=== PATIENT | female | born 1985 | race Caucasian/White ===

== ENCOUNTER 2017-12-15 06:13 | Emergency (ER) | payer OTHER ==
[~2017-12-15] VITALS: Ht 167.6 cm; Wt 90.7 kg
[~2017-12-15 06:13] MED LIST: ACETAMINOPHEN-1 EAC1 PO; AMOXICILLIN500 M1 PO; APAP/CODEINE ELI5 M1 OR; AUGMENTIN 875875 MG PO; AZITHROMYCIN 2250 MG PO; CIPRO500 MG PO; DIFLUCAN200 MG PO; FLAGYL500 MG PO; FLEXERIL PO; LEVAQUIN 750 M750 MG PO; PREDNISONE50 MG PO; PROAIR HFA8.5 GM INH; SUPRAX400 M1 PO; TRAZODONE HCL50 MG PO; ULTRAM 50MG TAB50 MG PO; VENLAFAXIN75 MG/1 T2 PO; WELLBUTRIN SR150 MG PO
[2017-12-15 07:11] LABS: INFLUENZA A ANTIGEN None Detected (None Detect); INFLUENZA B ANTIGEN None Detected (None Detect)
[2017-12-15] MEDS ORDERED: AMOXICILLIN 50500 MG PO (07:25)
[2017-12-15 07:40] VITALS: BP 108/73
== END 2017-12-15 07:43 | disposition home or self-care (01) ==
LOC: M.ERS 06:13
PROVIDERS: Emergency Medicine
DX: J06.9 Acute upper respiratory infection, unspecified (principal); F32.9 Major depressive disorder, single episode, unspecified; F17.210 Nicotine dependence, cigarettes, uncomplicated; F10.99 Alcohol use, unspecified with unspecified alcohol-induced disorder; Z86.73 Personal history of transient ischemic attack (TIA), and cerebral infarction without residual deficits

== ENCOUNTER 2018-11-11 09:05 | Emergency (ER) | payer OTHER ==
[~2018-11-11] VITALS: Ht 170.2 cm; Wt 86.2 kg
[~2018-11-11 09:05] MED LIST changes: +AMOXICILLIN 50500 MG PO
[2018-11-11 09:47] LABS: URINE BILIRUBIN NEGATIVE (Negative); URINE BLOOD 1+ (Negative); URINE CLARITY CLEAR; URINE COLOR YELLOW; URINE GLUCOSE-RANDOM NEGATIVE (Negative); URINE KETONES NEGATIVE (Negative); URINE LEUKOCYTES-REFLEX NEGATIVE (Negative); URINE NITRITE-REFLEX NEGATIVE (Negative); URINE PROTEIN NEGATIVE (Negative); URINE UROBILINOGEN 0.2 E.U./dl (0.2-1.0)
[2018-11-11] MEDS ORDERED: FLAGYL 250 MG250 MG PO (09:53)
[2018-11-11 10:14] LABS: BACTERIA-REFLEX 1-9 Few /HPF (None Seen); CASTS None Seen /LPF (None Seen); CRYSTALS None Seen /LPF (None Seen); MUCUS None Seen strn/LPF (None Seen); SQUAMOUS 4-10 Moderate /LPF (0-3); URINE RBC 3-10 Few /HPF (0-2); URINE WBC-REFLEX 0-5 Rare /HPF (0-5)
[2018-11-11 10:51] VITALS: BP 138/88
== END 2018-11-11 10:52 | disposition home or self-care (01) ==
LOC: M.ERS 09:05
PROVIDERS: Personal Emergency Response Attendant
DX: N76.0 Acute vaginitis (principal); B96.89 Other specified bacterial agents as the cause of diseases classified elsewhere; F17.210 Nicotine dependence, cigarettes, uncomplicated; F32.9 Major depressive disorder, single episode, unspecified; Z86.73 Personal history of transient ischemic attack (TIA), and cerebral infarction without residual deficits

== ENCOUNTER 2020-08-15 17:16 | Emergency (ER) | payer OTHER ==
[~2020-08-15] VITALS: Ht 167.6 cm; Wt 90.7 kg
[~2020-08-15 17:16] MED LIST changes: +FLAGYL 250 MG250 MG PO
[2020-08-15 17:52] LABS: URINE BILIRUBIN NEGATIVE (Negative); URINE BLOOD TRACE (Negative); URINE CLARITY CLEAR; URINE COLOR YELLOW; URINE GLUCOSE-RANDOM NEGATIVE (Negative); URINE KETONES NEGATIVE (Negative); URINE LEUKOCYTES-REFLEX NEGATIVE (Negative); URINE NITRITE-REFLEX NEGATIVE (Negative); URINE PROTEIN NEGATIVE (Negative); URINE SPECIFIC GRAVITY 1.015 (1.005-1.030); URINE UROBILINOGEN 0.2 E.U./dl (0.2-1.0)
[2020-08-15] MEDS ORDERED: AZITHROMYCIN 2250 MG PO (18:30)
[2020-08-15] MEDS ORDERED: SUPRAX400 M1 PO (18:30)
[2020-08-15] MEDS ORDERED: DIFLUCAN150 MG PO (18:30)
[2020-08-15] MEDS ORDERED: FLAGYL500 M1 PO (18:30)
[2020-08-15 18:37] VITALS: BP 136/99
== END 2020-08-15 18:38 | disposition home or self-care (01) ==
LOC: M.ERS 17:16
PROVIDERS: Family Medicine
DX: N89.8 Other specified noninflammatory disorders of vagina (principal); F17.210 Nicotine dependence, cigarettes, uncomplicated; Z86.73 Personal history of transient ischemic attack (TIA), and cerebral infarction without residual deficits

== ENCOUNTER 2021-06-06 10:02 | Emergency (ER) | payer OTHER ==
[~2021-06-06] VITALS: Ht 167.6 cm; Wt 90.7 kg
[~2021-06-06 10:02] MED LIST changes: +DIFLUCAN150 MG PO; +FLAGYL500 M1 PO
[2021-06-06 11:22] VITALS: BP 145/100
== END 2021-06-06 11:24 | disposition home or self-care (01) ==
LOC: M.ERS 10:02
DX: R06.02 Shortness of breath (principal); Z20.822 Contact with and (suspected) exposure to COVID-19; R05 Cough; R53.83 Other fatigue; R51.9 Headache, unspecified; F32.9 Major depressive disorder, single episode, unspecified; F17.210 Nicotine dependence, cigarettes, uncomplicated; Z86.73 Personal history of transient ischemic attack (TIA), and cerebral infarction without residual deficits